=== PATIENT | female | born 1995 | race Two or more races ===

== ENCOUNTER 2020-05-29 12:21 | Emergency (ER) | payer MEDICAID ==
[~2020-05-29] VITALS: Ht 165.1 cm; Wt 72.6 kg
[2020-05-29 12:24] VITALS: BP 141/91
== END 2020-05-29 14:30 | disposition home or self-care (01) ==
LOC: ER 12:21
DX: U07.1 COVID-19 (principal); J40 Bronchitis, not specified as acute or chronic
CPT/HCPCS: 71045